=== PATIENT | female | born 1960 | race Caucasian/White ===

== ENCOUNTER 2022-05-15 04:30 | Emergency (ER) | payer SELFPAY ==
[2022-05-15] MEDS: Sodium Chloride 0.9% 1,000 ML IV ONE (05:08)
[2022-05-15] MEDS: Metoprolol Tartrate 5 MG/5 ML SDV IVPUSH ONE (05:08)
[2022-05-15 05:19] LABS: CARBON DIOXIDE,CO2 25.4 mmol/L (21.0-32.0); POTASSIUM,K 4.4 mmol/L (3.5-5.1)
[2022-05-15] MEDS: Iopamidol 755 MG/ML 500 ML Multipack Bottle IVPUSH STA (06:21)
== END 2022-05-15 08:26 | disposition home or self-care (01) ==
LOC: MW.ED 04:30
DX: R00.2 Palpitations (principal); F17.210 Nicotine dependence, cigarettes, uncomplicated
CPT/HCPCS: 36415; 71045; 71275; 80053; 83690; 84443; 84484; 85025; 85379; 93005; 96361; 96374; 99285; J3490; J7030; Q9967; 93010; 99284